=== PATIENT | male | born 1960 | race Caucasian/White ===

== ENCOUNTER 2025-01-03 01:16 | Inpatient (IN) | payer OTHER, SELFPAY ==
[2025-01-02 19:04] VITALS: BP 99/67
[2025-01-02 19:34] LABS: Hematocrit 39.1 % (39.0-52.0); Hemoglobin 13.5 g/dL (13.0-18.0); Mean Corp Hgb Conc. 34.5 g/dL (33.0-37.0); Mean Corpuscular Volume 86.9 fL (80.0-94.0); Nucleated Red Blood Cells % 0 % (-); Platelet Count 154 10^3/uL (130-400); Red Cell Dist. Width 13.3 % (11.5-14.5)
[2025-01-02 19:47] LABS: COVID-19 Antigen Negative (Negative)
[2025-01-02 19:49] LABS: ALT (SGPT) 19 U/L (0-50); AST (SGOT) 25 U/L (17-59); Albumin 4.6 g/dl (3.5-5.0); Alkaline Phosphatase 65 U/L (38-126); Blood Urea Nitrogen 30 mg/dl (9-20); Calcium 9.2 mg/dl (8.4-10.2); Carbon Dioxide 27 mmol/L (22-30); Chloride 100 mmol/L (98-107); Glucose 107 mg/dl (70-99); Potassium 4.8 mmol/L (3.5-5.1); Sodium 134 mmol/L (135-145); Total Protein 7.5 g/dl (6.3-8.2); eGFR 41.51
[2025-01-02 19:55] LABS: Urine Character Clear (Clear)
[2025-01-02 20:12] LABS: Urine White Cell 30-40 /HPF (0-5)
[2025-01-02 22:24] VITALS: BP 142/80
--- NOTE | 2025-01-02 22:37 | ED.GENMED ---
History of Present Illness
General
Chief Complaint: Fever
Source: patient
Time Seen by Provider: 01/02/25 22:18
History of Present Illness
History of Present Illness:
64-year-old male presents to the emergency room complaining of fever, chills, dysuria, frequency and urgency. Patient began having the symptoms today. Patient is approximately 6 weeks status post left nephrectomy for donation. Patient had a
relatively uncomplicated recovery from nephrectomy. He did have some urinary retention which was monitored closely with bladder scans though he never required any catheterizations. His creatinine most recently was 1.69. Surgery was performed at
[place]. Patient has no flank pain. His incisions have healed nicely. He is not having any abdominal pain or chest pain. No shortness of breath.
Phy Exam
Physical Exam
Physical Exam:
General: Awake, Alert, Oriented X3. No acute distress.
Vitals: unremarkable
Head: Atraumatic
Eyes: Pupils equal, EOMI
Throat: Airway intact, no exudates mildly dry mucosa
Neck: Trachea midline
Lungs: Clear and equal b/l
Heart: Regular rate, no murmurs
Abd: Soft, Nontender, No pulsatile mass
Back: No CVA tenderness to percussion
Neuro: Nonfocal
Skin: Warm, dry, no rash, patient capillary refill
Extremities: pulses equal b/l, no edema
Sepsis
Sepsis Screening
Sepsis Assessment: Sepsis
Sepsis Screen
Sepsis Screen: Sepsis
Date: 01/03/25
Time: 05:21
Course
Orders/Labs/Results
Orders:
Orders
01/02/25 19:23
CBC/With Diff [Complete Blood Count/With Diff] Urgent
CMP [Comprehensive Metabolic Panel] Urgent
COVID-19 Antigen Urgent
Source: Nasal Swab
Lactic Acid Urgent
Urinalysis Reflex To Culture Urgent
Date Specimen was Collected: 01/02/25
Time Specimen was Collected: 19:21
Urine Microscopic Reflex Cult Urgent
Blood Culture Urgent
SUSU Source: Blood/Venous
Specimen Description:
Urine Culture Urgent
SUSU Source: U
Specimen Description:
Date Specimen was Collected: 01/02/25
Time Specimen was Collected: 19:21
01/02/25 22:33
0.9% Sodium Chloride 1000 ml [Nss] 1,000 ml IV BOLUS
Acetaminophen [Tylenol] 1,000 mg PO NOW STA
01/02/25 22:34
CT Abd/pel Without Iv Or Oral Urgent
Comment:
Reason For Exam: elevated creatinine, recent nephrectomy, fever
01/02/25 22:35
CefTRIAXone [Rocephin] 2,000 mg IV NOW STA
01/02/25 22:40
Bladder Scan- Treatment ONCE
01/02/25 22:44
Sterile Water [Sterile Water For Injection] 20 ml .ROUTE .STK-MED
01/02/25 23:06
Blood Culture Q30M
SUSU Source: Blood/Venous
Specimen Description:
Blood Culture Q30M
SUSU Source: Blood/Venous
Specimen Description:
01/03/25 00:40
Admit/Transfer Patient As Directed
Co-Sign Provider:
Level of Care: Inpatient admission
Assign to:: Medical/Surgical
Physician / Group: [facility]
Diagnosis: Complicated UTI
Reason for Hospitalization: complicated uti
Expected length of stay greater than two midnights?: Yes
ELOS- Estimated Length of Stay in days: 2
I certify the patient meets the requirements for IP care: Yes
Code Status As Directed
Resuscitation Status: Full Code
PRN Pain Medication Management As Directed
May give lesser potent ordered pain med per pt: Yes
preference::
Protocol:: Medication orders for pain may be administered in a
manner that supports deferring to patient preference
when the pt is:
- Requesting an ordered lesser potent pain medication.
Least to most potent pain medications are defined
as: acetaminophen < NSAID < tramadol < opioids
(morphine, oxycodone, hydromorphone).
- Requesting a lesser dose of the same medication IF
ORDERED.
- Requesting a less intrusive route of administration
if both routes are prescribed by the provider (PO <
IV).
01/03/25 02:54
0.9% Sodium Chloride 1000 ml [Nss] 1,000 ml IV 125 mls/hr
Acetaminophen [Tylenol] 650 mg PO Q4HPRN PRN
Bisacodyl [Dulcolax] 10 mg RECTAL [id number] PRN
Docusate W/Senna [Senokot-S] 1 tablet PO BIDPRN PRN
Ondansetron Injectable [Zofran] 4 mg IV Q6HPRN PRN
Phenazopyridine HCl [Pyridium] 100 mg PO TIDPRN PRN
Polyethylene Glycol Powder [Miralax] 17 grams PO DAILYPRN PRN
01/03/25 02:54
Activity As Directed
Activity Level: With Assistance
Bladder Scan As Directed
Follow Bladder Retention/Intermittent Cath Algorithm?: Yes
PRN if no void in __ hours: 6
Frequency: Per Retention Algorithm
If Bladder Scan Result >: 400
then:: Straight cath
Straight Cath As Directed
Frequency: Per Retention Algorithm
Additional Instructions: straight cath as needed per acute urinary retention algorithm for 24 hrs
Additional Instructions: for bladder scan greater than 400 mL
Vital Signs As Directed
Frequency: Per unit guidelines
DX Deep Vein Thrombosis Video Routine
01/03/25 Breakfast
Regular
Basic Metabolic Panel IN AM
Complete Blood Count/No Diff IN AM
Magnesium IN AM
01/03/25 08:00
Atorvastatin [Lipitor] 10 mg PO DAILY
Heparin 5,000 units SC Q8
Paroxetine [Paxil] 10 mg PO DAILY
Tamsulosin [Flomax] 0.4 mg PO DAILY
01/03/25 22:00
CefTRIAXone [Rocephin] 2,000 mg IV Q24H
Zolpidem Tartrate [Ambien] 5 mg PO HS
Abnormal Lab Results
01/02/25
19:23
WBC 16.8 H 10^3/uL
(4.8-10.8)
RBC 4.50 L 10^6/uL
(4.70-6.10)
MPV 11.1 H fL
(7.4-10.4)
Abs Immat Gran (auto) 0.1 H 10^3/uL
(0-0.05)
Absolute Neuts (auto) 14.0 H 10^3/uL
(1.4-6.5)
Absolute Monos (auto) 1.1 H 10^3/uL
(0.1-0.6)
Neutrophils % 83.7 H %
(42.2-75.2)
Lymphocytes % 8.2 L %
(20.5-51.1)
Sodium 134 L mmol/L
(135-145)
BUN 30 H mg/dl
(9-20)
Creatinine 1.8 H mg/dL
(0.7-1.3)
Glucose 107 H mg/dl
(70-99)
Ur Occult Blood Reflex 1+ A
(Negative)
Leukocyte Esterase Rfl 1+ A
(Negative)
Urine RBC 11-15 A /HPF
(0-2)
Urine WBC (Reflex) 30-40 A /HPF
(0-5)
Urine Bacteria (Reflex) Moderate A
(Negative)
Urine Albumin (Reflex) 2+ A
(Neg - Trace)
01/02/25 19:23
01/02/25 19:23
Vital Signs
Initial and Last Documented VS:
Initial Vital Signs
Temp Pulse Resp BP Pulse Ox
99.5 F 98 20 99/67 98
01/02/25 19:04 01/02/25 19:04 01/02/25 19:04 01/02/25 19:04 01/02/25 19:04
Last Documented Vital Signs
Temp Pulse Resp BP Pulse Ox
98.7 F 89 17 105/68 99
01/03/25 03:02 01/03/25 03:02 01/03/25 03:02 01/03/25 03:02 01/03/25 03:02
MDM/Problems Addressed
Differential Diagnosis Includes:
Cystitis, pyelonephritis, infected stone, postsurgical collection or infection
MDM/Problems Addressed:
Patient presents with fever, dysuria and frequency. Patient hemodynamically stable. He is febrile here. Urinalysis is consistent with urinary tract infection. Patient's creatinine is slightly bumped from his baseline of 1.6. IV fluids
administered. IV antibiotics administered. I believe patient requires hospitalization given his recent kidney donation, the fact he is quite febrile and does appear ill. Postvoid residual here is about 100. I do not believe requires bladder
decompression but this consistent residual urine in the bladder may be setting him up for infection.
*Radiology
Radiology exam reviewed: radiology read reviewed
*Pulse Oximetry
SaO2: 98
Oxygen Mode of Delivery: Room air
Patient hypoxic: no
*Critical Care Note
Total Time (30-74mins, 75-104mins- exclusive of procedures): Not Applicable
ED Attending Note
-
Portions of this chart may have been created with voice recognition software.� Occasional wrong word or��sound alike� substitutions may have occurred due to the inherent limitations of voice recognition software.
Discharge Plan
Departure
Patient Disposition: Admit
Date of Disposition: 01/03/25
Time of Disposition: 00:18
Admit to: Med/Surg
Presentation/result/management discussed w/ accepting MD/DO: Hospitalist
Condition: Fair
Discharge Problem:
Acute UTI, Sepsis
Interventions
Interventions:
*Risk Screen - Suicide Last Done: 01/03/25 02:57
*General Assessment Last Done: 01/02/25 19:04
*Neglect/Abuse Screening Last Done: 01/02/25 19:04
*ED- Fall Risk Assessment Last Done: 01/02/25 22:48
*ED COVID-19 Vaccine History Last Done: 01/03/25 02:57
*Nursing Disposition Last Done: 01/03/25 02:45
ED- Neurological Assessment Last Done: 01/02/25 22:48
ED-Skin Assessment Last Done: 01/02/25 22:48
Discharge Date and Time
Discharge Date/Time: 01/03/25 02:47
[2025-01-02] MEDS: TYLENOL 1000 MG PO (22:55)
[2025-01-02] MEDS: NSS 1000 IV (22:55)
[2025-01-02] MEDS: ROCEPHIN 2000 MG IV (22:55)
[2025-01-02 23:00] VITALS: BP 120/68
[2025-01-02 23:36] VITALS: BP 139/83
[2025-01-03] VITALS (7 sets, daily range): BP systolic 105–114; BP diastolic 62–74; BMI 25.2
--- NOTE | 2025-01-03 00:33 | HPS.HSE ---
Family Physician
-
Family Physician: Morgan Diaz
Chief Complaint
-
Urinary symptoms and fever
History of Present Illness
This is a 64-year-old with past medical history significant for hyperlipidemia who is 6 weeks status post left nephrectomy, kidney donor presented to the emergency department with fever and urinary symptoms.
Patient reported that postoperatively he had some urinary retention but did not require catheterization. His creatinine was 1.69 at time of discharge. He said today he started having urinary frequency, dysuria, urgency and chills. Was found to
have fever on arrival in the emergency department.
He had an uncomplicated recovery from right nephrectomy but did have bladder scans for urinary retention but did not require catheterization. Creatinine immediately postop was 1.84 and his creatinine was 1.69 at time of discharge a few days later.
Patient reports history of BPH and he started taking tamsulosin about 6 months ago. He still continues to have nocturia.
In the ED he had a temp of 101.1, blood pressure was 112/74 with a pulse rate of 102 and was satting 91% on room air. White count was 16.8, hemoglobin was otherwise unremarkable with normal platelet count. Electrolytes were normal. Creatinine is
1.8 with a BUN of 30 and a glucose of 107. UA is positive for leukocyte esterase WBCs and bacteria. The's noncontrast CT of the abdomen pelvis showed possible bladder wall thickening consistent with cystitis, no obstruction, status post left
nephrectomy. Negative COVID flu and, negative flu
Medical History
Past Medical History
Past Medical History: Reports Hypercholesterolemia and Other (BPH)
Past Surgical History: Reports Other (Left nephrectomy)
Social History
Tobacco: Non-smoker
Alcohol: None
Drug: None
Family History
Family History: Not pertinent
Allergies / Home Medications
Allergies reflects when Allergies were last updated in [employer].
Home Medications with original date entered in [employer]
Allergy/Medication List:
Allergies
Allergy/AdvReac Type Severity Reaction Status Date / Time
Penicillins Allergy Unknown Verified 01/02/25 19:03
Home Medications
paroxetine HCl 10 mg tablet (Paxil) 10 mg PO DAILY 01/03/25
simvastatin 10 mg tablet 10 mg PO DAILY 01/03/25
tamsulosin 0.4 mg capsule 0.4 mg PO DAILY 01/03/25
zolpidem 5 mg tablet (Ambien) 5 mg PO HS 01/03/25
Review of Systems
-
Constitutional: Reports Fever
EENT: Reports No Symptoms
Respiratory: Reports No Symptoms
Cardiac: Reports No Symptoms
Abdomen/GI: Reports No Symptoms
: Reports Dysuria, Frequency and Urgency
Musculoskeletal: Reports No Symptoms
Skin: Reports No Symptoms
Neurological: Reports No Symptoms
Endocrine: Reports No Symptoms
Hematologic/Lymphatic: Reports No Symptoms
Psych: Reports No Symptoms
Physical Exam
Vital Signs
Vital Signs
Temp Pulse Resp BP Pulse Ox
101.1 F H 102 25 112/74 97
01/03/25 00:16 01/03/25 00:00 01/03/25 00:00 01/03/25 00:00 01/03/25 00:00
Physical Exam
General: Well Developed, Well Nourished and No Apparent Distress
HEENT: NormoCephalic, Moist mucous membranes and Atraumatic
Respiratory: Clear
Cardiac: S1/S2 and Regular Rhythm; No Murmur or Rub
GI: Soft, Non Tender, Non Distended and Normal Bowel Sounds; No Organomegaly
Rectal: Deferred by Provider
Musculoskeletal: No Clubbing, No Cyanosis and No Edema
Skin: No Rash
Neuro: Nonfocal/grossly intact
Laboratory Results
-
01/02/25 19:23
01/02/25 19:23
Laboratory Results
Lactic Acid 0.7 mmol/L (0.7-2.0) 01/02/25 19:23
Total Bilirubin 0.6 mg/dl (0.2-1.3) 01/02/25 19:23
AST 25 U/L (17-59) 01/02/25 19:23
ALT 19 U/L (0-50) 01/02/25 19:23
Alkaline Phosphatase 65 U/L (38-126) 01/02/25 19:23
Data Reviewed
-
CT Scan: Report Reviewed by me
Lab Data: Labs Reviewed by me
Old Records: Reviewed
Impression/Plan
-
IMPRESSION:
64-year-old presented to the emergency department with pyelonephritis 6 weeks status post left donor nephrectomy. Appears to have RUSTAM since the procedure with a creatinine of 1.6 at the time of discharge and now 1.8. No urinary obstruction but
appears to have some symptoms of urinary retention at time of discharge from cephalization. Today there is no evidence of urinary retention on imaging. He is on tamsulosin. He has positive UA fever and leukocytosis consistent with a urinary tract
infection for
PLAN:
Complicated UTI -unclear etiology of his urinary tract infection but likely related to moderate retention. No evidence of prostatitis. Has a fever and possibly pyelonephritis.
- Admit to [facility]
- Blood cultures sent
-Urine cultures
- Agree with IV ceftriaxone for now
- IV fluids overnight
- Bladder scan to monitor for retention
- Continue tamsulosin
- pyridium prn
Renal Insufficiency - Pre-surgical Cr 1.0. Preop as high as 1.3, then 1.84 post operatively at the peak. 1.69 at discharge. The transient is in line with loss of total kidney function with surgery. Slightly worsened since discharge with Cr 1.8.
BPH symptoms with possible retention but no current hydro or bladder distention
- iv fluids
- bladder scan protocol
- avoid nephrotoxins, nsaids
- if creatinine rising further, consult nephrology
DVT prophylaxis�heparin subcu
CODE STATUS�full code
[2025-01-03] MEDS: NSS 1000 IV ×3 (03:34→17:46)
--- NOTE | 2025-01-03 03:53 | PTCARENOTE ---
Pt arrived around 02:45 via wheelchair and ambulated to bed. Pt oriented to unit, call shore within reach, side rails up, bed set at lowest position. Will continue plan of care.
[2025-01-03] MEDS: FLOMAX 0.4 MG PO ×2 (05:50→14:18)
[2025-01-03] MEDS: TYLENOL 650 MG PO ×3 (08:26→21:04)
[2025-01-03] MEDS: HEPARIN 5000 UNITS SC (08:27)
[2025-01-03] MEDS: LIPITOR 10 MG PO (08:27)
[2025-01-03] MEDS: PAXIL 10 MG PO (08:27)
[2025-01-03 08:34] LABS: Blood Urea Nitrogen 25 mg/dl (9-20); Calcium 8.0 mg/dl (8.4-10.2); Carbon Dioxide 25 mmol/L (22-30); Chloride 105 mmol/L (98-107); Estimated Creatinine Clearance 46 ml/min; Glucose 104 mg/dl (70-99); Magnesium 2.0 mg/dl (1.6-2.3); Potassium 4.4 mmol/L (3.5-5.1); Sodium 134 mmol/L (135-145); eGFR 41.51
[2025-01-03 08:55] LABS: Hematocrit 33.5 % (39.0-52.0); Hemoglobin 11.5 g/dL (13.0-18.0); Mean Corp Hgb Conc. 34.3 g/dL (33.0-37.0); Mean Corpuscular Volume 86.6 fL (80.0-94.0); Red Cell Dist. Width 13.3 % (11.5-14.5)
[2025-01-03 09:09] LABS: Platelet Count 130 10^3/uL (130-400)
--- NOTE | 2025-01-03 10:10 | W.PN.HOSP.TC ---
Today's Communication/Plan
-
cont ABX
cont IVF
consult renal
Assessment / Plan
Assessment / Plan
pt is a 64 year old male
Complicated UTI -unclear etiology of his urinary tract infection but likely related to moderate retention--No evidence of prostatitis--cultures pending--cont rocephin, cont flomax--cont IVF--bladder scan protocol
RUSTAM - Pre-surgical Cr 1.0. Preop as high as 1.3, then 1.84 post operatively at the peak--1.69 at discharge--Slightly worsened since discharge with Cr 1.8. BPH symptoms with possible retention but no current hydro or bladder distention --consult
renal--cont IVF--cont tamsulosin
DVT prophylaxis�heparin subcu
CODE STATUS�full code
Anticipated Discharge: Within 24 hours
Subjective/Interval History
-
Date of Service: January 03, 2025
pt still c/o some burning with urination
Objective Data
-
Labs:
Laboratory Results
01/03/25
07:00
WBC 20.9 H
Hgb 11.5 L
Hct 33.5 L
Plt Count 130
Sodium 134 L
Potassium 4.4
Chloride 105
Carbon Dioxide 25
BUN 25 H
Creatinine 1.8 H
Glucose 104 H
Calcium 8.0 L
Vital Signs:
max temp for 24 hours
01/03/25
00:16
Temp 101.1 F H
Vital Signs
Temp Pulse Resp BP Pulse Ox
100.9 F H 88 16 114/67 97
01/03/25 07:47 01/03/25 07:47 01/03/25 07:47 01/03/25 07:47 01/03/25 07:47
I&O
01/02/25 01/03/25 01/04/25
06:59 06:59 06:59
Output Total 400 / 400
Balance -400 / -400
Review of Systems
-
All other systems: Reviewed and negative
Genitourinary: Reports Dysuria
Physical Exam
-
General: Well Developed, Well Nourished and No Apparent Distress
HEENT: Normocephalic and Atraumatic
Respiratory: Clear to Auscultation; Negative Wheezes or Rhonchi
Cardiac: Regular Rhythm and S1/S2; Negative Murmur
GI: Soft, Nontender, Nondistended and Normal Bowel Sounds
Musculoskeletal: No Clubbing, No Cyanosis and No Edema
Skin: Warm
Neuro: Awake
--- NOTE | 2025-01-03 12:40 | W.CON.NEPH ---
Addendum entered and electronically signed by Lito Walker MD 01/03/25 15:03:
I agree with the resident's note with the addendum
64-year-old gentleman in very good health with known BPH on Flomax therapy for years though he still has nocturia 4 times per night. He has hyperlipidemia controlled with statin therapy. He underwent a living left kidney laparoscopic donation 6
weeks ago for a friend of the family. His hospital course was unremarkable. His creatinine prior to nephrectomy was 1.03 and postprocedure was 1.69. He had subsequent follow-up blood work which had shown a creatinine of 1.7 and 1.84 as well. He
was in fairly good health until a few days ago when he began developing urinary frequency as well as dysuria and urgency. Because of this he went to urgent care who referred him to the emergency room. He was admitted with a urinary tract
infection. Urine cultures thus far are negative to date however. He has not required straight catheterization on postvoid residual in the hospital. His creatinine was noted to be 1.8 and we are asked to assist with management of his renal
function.
Patient is awake alert oriented and in no distress. Mood and affect were pleasant, insight and judgment were good. Pupils are equal round and reactive to light, extraocular movements are intact, sclera were anicteric. Hearing was normal, ears and
nose are intact. Oropharynx was clear. Neck was supple with trachea midline and no thyromegaly. Heart was regular rate and rhythm without rubs. Lower extremities without edema. Lungs were clear to auscultation bilaterally and with normal
excursion. Abdomen was soft, nontender, with normal active bowel sounds, and no hepatosplenomegaly. Skin was without rash and with normal turgor.
Prior laboratory values reviewed
Abdominal CT on 01/02/2025 shows no acute disease
Assessment
RUSTAM (solitary kidney status post nephrectomy)
BPH
UTI
Plan
Continue IV Fluids
Increase Flomax dosage given concern for retention
Daily BMP
Antibiotics will continue for UTI
Follow bladder scan
Current creatinine is appropriate given his recent nephrectomy.
Original Note:
Consultation
-
Date/Time Consultation Requested: 01/03/2025 10:19
Date/Time Consultation Performed: 01/03/2025 12:43
Requesting Provider: Janet Mcgee MD
Performing Provider: Lito Walker MD
Reason for Consultation: RUSTAM
Medical History
-
Chief Complaint: FEVER
History of Present Illness:
This is a 64-year-old male with past medical history of hyperlipidemia, BPH recent kidney donor s/p left nephrectomy 6 weeks ago at [facility] who presented to ED complaining of fever and urinary symptoms. Patient recently donated his left kidney. He
states he had an uncomplicated recovery from nephrectomy with incisions healed appropriately. Postprocedure, he did have some urinary retention but did not require catheterizations. In addition, he reports that today started having urinary
frequency, dysuria, urgency and chills. Creatinine postprocedure was 1.69 which patient states has been trending up over the past few weeks. Prior to procedure, his baseline creatinine was 1.03. Laboratory today with creatinine 1.8, eGFR 41.51
given his worsening creatinine postprocedure, we are asked to evaluate patient from a nephrology standpoint.
Past Medical History
Past Medical History: Reports Hypercholesterolemia and Other (BPH)
Past Surgical History: Reports Other (Left nephrectomy)
Social History
Tobacco: Non-Smoker
Alcohol: None
Drug: None
Allergies / Home Medications
Allergy/AdvReac Type Severity Reaction Status Date / Time
Penicillins Allergy Unknown Verified 01/02/25 19:03
�Medication �Instructions �Recorded �Confirmed �Type
paroxetine HCl 10 mg tablet (Paxil) 10 mg PO DAILY 01/03/25 01/03/25 History
simvastatin 10 mg tablet 10 mg PO DAILY 01/03/25 01/03/25 History
tamsulosin 0.4 mg capsule 0.4 mg PO DAILY 01/03/25 01/03/25 History
zolpidem 5 mg tablet (Ambien) 5 mg PO HS 01/03/25 01/03/25 History
Review of Systems
-
All other systems: Negative unless noted (All review of systems obtained and negative except as documented in HPI)
Physical Exam
Vital Signs
Vital Signs
Temp Pulse Resp BP Pulse Ox
100.1 F 88 16 114/67 97
01/03/25 10:54 01/03/25 07:47 01/03/25 07:47 01/03/25 07:47 01/03/25 07:47
Lab Results
WBC 20.9 10^3/uL (4.8-10.8) H 01/03/25 07:00
RBC 3.87 10^6/uL (4.70-6.10) L 01/03/25 07:00
Hgb 11.5 g/dL (13.0-18.0) L 01/03/25 07:00
Hct 33.5 % (39.0-52.0) L 01/03/25 07:00
Plt Count 130 10^3/uL (130-400) 01/03/25 07:00
Sodium 134 mmol/L (135-145) L 01/03/25 07:00
Potassium 4.4 mmol/L (3.5-5.1) 01/03/25 07:00
Chloride 105 mmol/L (98-107) 01/03/25 07:00
Carbon Dioxide 25 mmol/L (22-30) 01/03/25 07:00
BUN 25 mg/dl (9-20) H 01/03/25 07:00
Creatinine 1.8 mg/dL (0.7-1.3) H 01/03/25 07:00
eGFR 41.51 01/03/25 07:00
Glucose 104 mg/dl (70-99) H 01/03/25 07:00
Calcium 8.0 mg/dl (8.4-10.2) L 01/03/25 07:00
Albumin 4.6 g/dl (3.5-5.0) 01/02/25 19:23
Physical Exam
General: Awake, Alert, Oriented and AOx3
HEENT: PERRL and Anicteric
Respiratory: Clear
Cardiac: S1/S2 and Regular Rate/Rhythm
Abdomen: Soft, Nontender, Nondistended and Normal Bowel Sounds
Musculoskeletal: No Edema
Assessment/Plan
-
Assessment
RUSTAM (solitary kidney status post nephrectomy) likely secondary to ongoing UTI
BPH
UTI
Plan
Continue IV Fluids
Increase Flomax dosage given concern for retention
Daily BMP
Monitor Urinary Output
Bladder scan
Follow cultures
[2025-01-03] MEDS: HEPARIN SC (15:45)
[2025-01-03] MEDS: ROCEPHIN 2000 MG IV (21:00)
[2025-01-03] MEDS: STERILE WATER FOR INJECTION 20 ML IV (21:04)
[2025-01-03] MEDS: AMBIEN 5 MG PO (21:05)
[2025-01-04] MEDS: HEPARIN SC ×3 (00:14→15:04)
[2025-01-04] MEDS: NSS 1000 IV ×3 (02:15→18:41)
[2025-01-04 07:00] VITALS: BP 96/61
[2025-01-04 08:02] LABS: Hematocrit 32.5 % (39.0-52.0); Hemoglobin 10.9 g/dL (13.0-18.0); Mean Corp Hgb Conc. 33.5 g/dL (33.0-37.0); Mean Corpuscular Volume 87.1 fL (80.0-94.0); Platelet Count 139 10^3/uL (130-400); Red Cell Dist. Width 13.6 % (11.5-14.5)
[2025-01-04] MEDS: LIPITOR 10 MG PO (08:12)
[2025-01-04] MEDS: PAXIL 10 MG PO (08:12)
[2025-01-04] MEDS: FLOMAX 0.8 MG PO (08:13)
[2025-01-04 08:20] LABS: Blood Urea Nitrogen 23 mg/dl (9-20); Calcium 8.1 mg/dl (8.4-10.2); Carbon Dioxide 24 mmol/L (22-30); Chloride 107 mmol/L (98-107); Estimated Creatinine Clearance 46 ml/min; Glucose 108 mg/dl (70-99); Magnesium 2.1 mg/dl (1.6-2.3); Potassium 4.3 mmol/L (3.5-5.1); Sodium 136 mmol/L (135-145); eGFR 41.51
--- NOTE | 2025-01-04 10:37 | W.PN.NEPH.PH ---
Today's Communication / Plan
-
IVF
Assessment/Plan
-
Assessment
RUSTAM (solitary kidney status post nephrectomy) likely secondary to ongoing UTI
BPH
UTI
Plan
Continue IV Fluids
Increased Flomax dosage
Daily BMP
check PVR today
Follow cultures, still negative to date
ok to come off IVF for shower if allowed
-
-
Date of Service: January 04, 2025
CC / HPI / ROS
-
Chief Complaint:
solitary kidney
History of Present Illness:
Cr stable 1.8
on IV abx for UTI, fewer symptoms
BP stable
Review of Systems:
no CP/SOB
Labs
-
Labs:
WBC 19.9 10^3/uL (4.8-10.8) H 01/04/25 07:32
RBC 3.73 10^6/uL (4.70-6.10) L 01/04/25 07:32
Hgb 10.9 g/dL (13.0-18.0) L 01/04/25 07:32
Hct 32.5 % (39.0-52.0) L 01/04/25 07:32
Plt Count 139 10^3/uL (130-400) 01/04/25 07:32
Sodium 136 mmol/L (135-145) 01/04/25 07:32
Potassium 4.3 mmol/L (3.5-5.1) 01/04/25 07:32
Chloride 107 mmol/L (98-107) 01/04/25 07:32
Carbon Dioxide 24 mmol/L (22-30) 01/04/25 07:32
BUN 23 mg/dl (9-20) H 01/04/25 07:32
Creatinine 1.8 mg/dL (0.7-1.3) H 01/04/25 07:32
eGFR 41.51 01/04/25 07:32
Glucose 108 mg/dl (70-99) H 01/04/25 07:32
Calcium 8.1 mg/dl (8.4-10.2) L 01/04/25 07:32
Albumin 4.6 g/dl (3.5-5.0) 01/02/25 19:23
Physical Exam
-
Vital Signs:
Vital Signs
Temp Pulse Resp BP Pulse Ox
99 F 74 16 96/61 96
01/04/25 07:00 01/04/25 07:00 01/04/25 07:00 01/04/25 07:00 01/04/25 07:00
Cardiovascular:: Regular rate and rhythm
Respiratory:: Bilateral: CTA
Lung Excursion:: Normal
Abdomen:: Nontender and Soft
Bowel Sounds:: Normal
Extremity Edema:: None: Bilateral:
[2025-01-04] MEDS: TYLENOL 650 MG PO ×2 (12:22→17:22)
--- NOTE | 2025-01-04 12:37 | W.PN.HOSP.TC ---
Today's Communication/Plan
-
change rocephin to cefepime
consult ID
recheck blood culture
follow counts
Assessment / Plan
Assessment / Plan
pt is a 64 year old male
Complicated UTI -unclear etiology of his urinary tract infection but likely related to moderate retention--? prostatitis, cultures negative but pt still with burning with urination and elevated WBC, shaking chills--change IV rocephin to
cefepime--consult ID, cont flomax--cont IVF--bladder scan protocol
RUSTAM - Pre-surgical Cr 1.0. Preop as high as 1.3, then 1.84 post operatively at the peak--1.69 at discharge--Slightly worsened since discharge with Cr 1.8... may be elevated for a few months yet.... BPH symptoms with possible retention but no
current hydro or bladder distention --apprec renal--cont IVF--cont tamsulosin, increased by renal
urinary retention--cont flomax and should follow up with urology as outpt
recent kidney donor
DVT prophylaxis�heparin subcu
CODE STATUS�full code
Anticipated Discharge: 24 - 48 hours
Subjective/Interval History
-
Date of Service: January 04, 2025
pt feels 'lousy'--shaking chills
Objective Data
-
Labs:
Laboratory Results
01/04/25
07:32
WBC 19.9 H
Hgb 10.9 L
Hct 32.5 L
Plt Count 139
Sodium 136
Potassium 4.3
Chloride 107
Carbon Dioxide 24
BUN 23 H
Creatinine 1.8 H
Glucose 108 H
Calcium 8.1 L
Vital Signs:
max temp for 24 hours
01/03/25
15:52
Temp 100.6 F H
Vital Signs
Temp Pulse Resp BP Pulse Ox
100.7 F H 74 16 96/61 96
01/04/25 12:21 01/04/25 07:00 01/04/25 07:00 01/04/25 07:00 01/04/25 07:00
I&O
01/03/25 01/04/25 01/05/25
06:59 06:59 06:59
Output Total 400 / 400 825 / 825
Balance -400 / -400 -825 / -825
Review of Systems
-
All other systems: Reviewed and negative
Constitutional: Reports Fever and Chills
Genitourinary: Reports Dysuria
Physical Exam
-
General: Well Developed, Well Nourished and Other (ill appearing)
HEENT: Normocephalic and Atraumatic
Respiratory: Clear to Auscultation; Negative Wheezes or Rhonchi
Cardiac: Regular Rhythm and S1/S2; Negative Murmur
GI: Soft, Nontender, Nondistended and Normal Bowel Sounds
Musculoskeletal: No Clubbing, No Cyanosis and No Edema
Skin: Warm
Neuro: Awake
Psych: Calm
[2025-01-04] MEDS: MAXIPIME 1000 MG IV (13:08)
[2025-01-04] MEDS: STERILE WATER FOR INJECTION 10 ML IV (13:08)
--- NOTE | 2025-01-04 14:13 | CM ---
Patient seen at bedside
IA completed
Lives with and son in multi story home, 3 [address], flight of stairs to bed/bath
PLOF: independent, drives, works
DME: Crutches
Denies VN/Rehab
PCP: Dr. Stuart, [facility]
Pharmacy: [address]
PLAN: Home, no needs when stable
[2025-01-04 15:00] VITALS: BP 105/61
[2025-01-04] MEDS: AMBIEN 5 MG PO (21:22)
[2025-01-04 23:41] VITALS: BP 98/60
[2025-01-05] MEDS: HEPARIN SC ×3 (00:05→15:16)
[2025-01-05] MEDS: STERILE WATER FOR INJECTION 10 ML IV ×2 (02:10→14:11)
[2025-01-05] MEDS: MAXIPIME 1000 MG IV ×2 (02:11→14:11)
[2025-01-05] MEDS: NSS 1000 IV (02:17)
[2025-01-05 07:47] VITALS: BP 119/63
[2025-01-05] MEDS: FLOMAX 0.8 MG PO (07:57)
[2025-01-05] MEDS: LIPITOR 10 MG PO (07:57)
[2025-01-05] MEDS: PAXIL 10 MG PO (07:57)
[2025-01-05] MEDS: MIRALAX 17 GRAMS PO (09:02)
--- NOTE | 2025-01-05 09:09 | CON.ID ---
Addendum entered and electronically signed by Pam Perez MD 01/05/25 17:00:
I personally performed a history and physical exam of the patient and discussed management with the resident. I reviewed the resident's note and agree with most of the documented findings and plan of care HPI/CC.
# Fever
# Leukocytosis
# Urinary sx: dysuria, urgency, frequency - suspecting prostatitis
# Recent robotic left nephrectomy for donation at [facility] 11/19/24
# RUSTAM
# BPH
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
-UA 1+LE, 30-40 wbc.
-Ucx NO GROWTH (before abx)
- CT a/p without contrast: +BPH, otherwise unremarkable
- No response to ceftriaxone -> changed to cefepime on 01/04.
Leukocytosis trending down.
Fever to 101 today at 15:00
Urine sxs persist.
- Continue cefepime for now (renally adjusted)
If no response, consider US of prostate and scrotum to evaluate for abscess and also check urine for GC/CT NAAT.
- Trend temps, WBC, and renal function.
Case discussed with Dr. Heath.
Original Note:
Consultation
-
Date/Time Consultation Requested: 01/04/25 12:36
Date/Time Consultation Performed: 01/05/25 10:00
Requesting Provider: Dr. Mcgee
Performing Provider: Yan Silver MD ; Pam Perez MD
Reason for Consultation: Pssible complicated UTI
Chief Complaint / Past History
Chief Complaint
Fever and dysuria
History of Present Illness
This is a 64-year-old male with known past medical history of hyperlipidemia, BPH, recent kidney donor s/p left nephrectomy 6 weeks ago at [facility] presented in the emergency department on 01/02/2025 with complaints of fever and urinary symptoms including
dysuria and frequency. He had an uncomplicated recovery from the nephrectomy with incisions healed appropriately and he was doing well until recently when he developed fevers and dysuria. He reports that postprocedure he did have some urinary
retention but did not require any catheterization. His creatinine postprocedure was 1.69, prior to procedure was 1.03. On arrival the creatinine was 1.8, eGFR was 41.51.
Nephrology was consulted and he was admitted for further treatment.
Initial labs showed that white count of 16.8 which has been trending down.
Initial serum creatinine was 1.8 with slight improvement today to 1.7
He also had mild hyponatremia which resolved.
COVID was negative
Urinalysis showed 1+ occult blood, leukocyte esterase positive, urine WBCs, urine bacteria.
He was started on ceftriaxone however given his persistent chills and dysuria I was changed to cefepime yesterday.
Blood cultures were also obtained which remained negative today. Urine culture negative.
Past History
Past Medical History: Hypercholesterolemia and Other (BPH)
Past Surgical History: Other (Left nephrectomy(donor))
Allergy History:
Penicillins Allergy (Verified 01/02/25 19:03)
Unknown
Medications Reviewed: Yes
Current Antibiotics:
cefepime
Social History
Tobacco: Non-Smoker
Alcohol: None
Drug: None
Living: With Family
Employment: Employed
Family History
Family History: Not Pertinent
Review of Systems
Review of Systems
General: Fever
Cardiovascular: Negative Chest Pain
Respiratory: Negative Dyspnea or Cough
Genital / Urological: Dysuria; Negative Hematuria or Flank Pain
Vital Signs
Temp Pulse Resp BP Pulse Ox
98 F 70 20 119/63 97
01/05/25 07:47 01/05/25 07:47 01/05/25 08:03 01/05/25 07:47 01/05/25 07:47
Physical Exam
Physical Exam
Constitutional: No Acute Distress and Comfortable
Cardiovascular: Regular Rate and S1/S2
Pulmonary: Clear, Symmetric and Non Labored
Gastrointestinal: Soft, Non Tender, Non Distended and Other (well healed surgical scars)
Skin: Warm and Dry
Neurological: Awake, Alert and Oriented
Psychological: Calm
Lab / Diagnostic Study Results
Abs Immat Gran (auto) 0.1 10^3/uL (0-0.05) H 01/02/25 19:23
Absolute Neuts (auto) 14.0 10^3/uL (1.4-6.5) H 01/02/25 19:23
Absolute Lymphs (auto) 1.4 10^3/uL (1.2-3.4) 01/02/25 19:23
Absolute Monos (auto) 1.1 10^3/uL (0.1-0.6) H 01/02/25 19:23
Absolute Basos (auto) 0.1 10^3/uL (0-0.2) 01/02/25 19:23
Immature Gran % 0.4 % (0-0.5) 01/02/25 19:23
Neutrophils % 83.7 % (42.2-75.2) H 01/02/25 19:23
Lymphocytes % 8.2 % (20.5-51.1) L 01/02/25 19:23
Monocytes % 6.3 % (1.7-9.3) 01/02/25 19:23
Eosinophils % 1.1 % (0-6) 01/02/25 19:23
Basophils % 0.3 % (0-2) 01/02/25 19:23
Lactic Acid 0.7 mmol/L (0.7-2.0) 01/02/25 19:23
Ur Squamous Epith Cells 3-5 /LPF (Few) 01/02/25 19:23
Microbiology Results
Micro:
01/02/25 23:06 Blood Culture - Preliminary
Blood/Venous No Growth in 48 hours- Final report to follow
01/02/25 23:06 Blood Culture - Preliminary
Blood/Venous No Growth in 48 hours- Final report to follow
01/02/25 19:23 Blood Culture - Preliminary
Blood/Venous No Growth in 48 hours- Final report to follow
01/04/25 18:21 Blood Culture - Pending
Blood/Venous
01/02/25 19:23 Urine Culture - Final
Urine NO GROWTH
CT Abd/pel Without Iv Or Oral 01/02/25:
Status post left nephrectomy. There is no evidence of a focal collection to suggest an abscess.
Normal appearance of the unenhanced right kidney. No focal abnormality of the urinary bladder.
Enlargement of the prostate gland.
Normal appearance of the appendix. No evidence for bowel obstruction or free intraperitoneal air. There is no CT evidence to suggest diverticulitis.
Assessment / Plan
# UTI with ongoing dysuria; prostatis is possible
# BPH ; flomax dose was doubled
# Renal insufficiency : per nephro creatinine is appropriate given his recent nephrectomy.
# Leukocytosis: resolving
# Recent Kidney Donor
- BCx and UCx neg; repeat bcx from yesterday pending
- afebrile since switched to cefepime on pm
- continue cefepime for now
--- NOTE | 2025-01-05 09:14 | W.PN.HOSP.TC ---
Today's Communication/Plan
-
Consult urology
c/w IV cefepime
Can stop IVF
Assessment / Plan
Assessment / Plan
Physical Exam
-
General: Well Developed, Well Nourished and Other (ill appearing)
HEENT: Normocephalic and Atraumatic
Respiratory: Clear to Auscultation; Negative Wheezes or Rhonchi
Cardiac: Regular Rhythm and S1/S2; Negative Murmur
GI: Soft, Nontender, Nondistended and Normal Bowel Sounds
Musculoskeletal: No Clubbing, No Cyanosis and No Edema
Skin: Warm
Neuro: Awake
Psych: Calm
A/p:
pt is a 64 year old male
# He presented with fever, dysuria and leukocytosis
Localized infection, not sepsis
Possible Complicated UTI -
Rule out prostatitis, cultures negative but pt still with dysuria/ burning with urination and elevated WBC, shaking chills--change IV rocephin to cefepime--consulted ID, cont Flomax--cont IVF--bladder scan protocol,
Consult urology
Appreciate ID & urology help
RSUTAM - Pre-surgical Cr 1.0. Preop as high as 1.3, then 1.84 post operatively at the peak--1.69 at discharge--Slightly worsened since discharge with Cr 1.8... may be elevated for a few months yet.... BPH symptoms with possible retention but no
current hydro or bladder distention --
c/w Flomax, cans top IVF ( he is having frequent urination)
Appreciate nephrology help
# Acute urinary retention--cont flomax
# Dilutional anemia
#Recent left nephrectomy as a kidney donor
DVT prophylaxis�heparin subcu
CODE STATUS�full code
Total time spent to see the patient, examine the patient, review data and lab results, discuss treatment plan with patient, nursing staff around 55 minutes
Anticipated Discharge: 24 - 48 hours
Subjective/Interval History
-
Date of Service: January 05, 2025
Reports Dysuria ( not improving)
No chest pain
No sob
No fevers
Objective Data
-
Labs:
Laboratory Results
01/05/25
08:19
WBC Pending
Hgb Pending
Hct Pending
Plt Count Pending
Sodium Pending
Potassium Pending
Chloride Pending
Carbon Dioxide Pending
BUN Pending
Creatinine Pending
Glucose Pending
Calcium Pending
Vital Signs:
Vital Signs
Temp Pulse Resp BP Pulse Ox
98 F 70 20 119/63 97
01/05/25 07:47 01/05/25 07:47 01/05/25 08:03 01/05/25 07:47 01/05/25 07:47
I&O
01/04/25 01/05/25 01/06/25
06:59 06:59 06:59
Intake Total 480 / 480
Output Total 825 / 825
Balance -825 / -825 480 / 480
[2025-01-05 09:26] LABS: Hematocrit 28.7 % (39.0-52.0); Hemoglobin 9.8 g/dL (13.0-18.0); Mean Corp Hgb Conc. 34.1 g/dL (33.0-37.0); Mean Corpuscular Volume 88.3 fL (80.0-94.0); Platelet Count 131 10^3/uL (130-400); Red Cell Dist. Width 13.7 % (11.5-14.5)
[2025-01-05 10:01] LABS: Blood Urea Nitrogen 18 mg/dl (9-20); Calcium 7.6 mg/dl (8.4-10.2); Carbon Dioxide 23 mmol/L (22-30); Chloride 107 mmol/L (98-107); Estimated Creatinine Clearance 48 ml/min; Glucose 121 mg/dl (70-99); Magnesium 2.1 mg/dl (1.6-2.3); Potassium 4.3 mmol/L (3.5-5.1); Sodium 135 mmol/L (135-145); eGFR 44.46
--- NOTE | 2025-01-05 12:27 | W.PN.NEPH.PH ---
Today's Communication / Plan
-
Discontinue IV fluids
Assessment/Plan
-
Assessment
RUSTAM (solitary kidney status post nephrectomy) likely secondary to ongoing UTI
BPH
UTI
Plan
Increased Flomax dosage
Daily BMP
check PVR = negative
Follow cultures, still negative to date
Fluids discontinued
Creatinine remains stable 1.7
-
-
Date of Service: January 05, 2025
CC / HPI / ROS
-
Chief Complaint:
solitary kidney
History of Present Illness:
Cr stable 1.8
on IV abx for UTI, fewer symptoms
BP stable
Review of Systems:
no CP/SOB
Labs
-
Labs:
WBC 12.8 10^3/uL (4.8-10.8) H 01/05/25 08:19
RBC 3.25 10^6/uL (4.70-6.10) L 01/05/25 08:19
Hgb 9.8 g/dL (13.0-18.0) L 01/05/25 08:19
Hct 28.7 % (39.0-52.0) L 01/05/25 08:19
Plt Count 131 10^3/uL (130-400) 01/05/25 08:19
Sodium 135 mmol/L (135-145) 01/05/25 08:19
Potassium 4.3 mmol/L (3.5-5.1) 01/05/25 08:19
Chloride 107 mmol/L (98-107) 01/05/25 08:19
Carbon Dioxide 23 mmol/L (22-30) 01/05/25 08:19
BUN 18 mg/dl (9-20) 01/05/25 08:19
Creatinine 1.7 mg/dL (0.7-1.3) H 01/05/25 08:19
eGFR 44.46 01/05/25 08:19
Glucose 121 mg/dl (70-99) H 01/05/25 08:19
Calcium 7.6 mg/dl (8.4-10.2) L 01/05/25 08:19
Albumin 4.6 g/dl (3.5-5.0) 01/02/25 19:23
Physical Exam
-
Vital Signs:
Vital Signs
Temp Pulse Resp BP Pulse Ox
98 F 70 20 119/63 97
01/05/25 07:47 01/05/25 07:47 01/05/25 08:03 01/05/25 07:47 01/05/25 07:47
Cardiovascular:: Regular rate and rhythm
Respiratory:: Bilateral: CTA
Lung Excursion:: Normal
Abdomen:: Nontender and Soft
Bowel Sounds:: Normal
Extremity Edema:: None: Bilateral:
[2025-01-05 15:00] VITALS: BP 119/68
[2025-01-05] MEDS: TYLENOL 650 MG PO (16:11)
--- NOTE | 2025-01-05 16:12 | W.PN.URO.CBU ---
Today's Communication / Plan
-
cotinue present care
Assessment / Plan
-
by history pt with complex uti most likely prostatitis due to richards and steroids ct scan also possible cystitis for now agree with flomax 0.4 as bladder emptyimg and wbc and fever trending down would treat as prostatitis but if
relapses benny do abdoulaye an d may need mri but d]for now sxs resolving cannot have advil secondary to creatinine so pyridium for burning which generally has little effect richards can be useful but should nt instrument infected prostae will folow
Diagnosis
-
Date of Service: January 05, 2025
-
Patient Diagnosis:s/p kidney donation 7 weeks ago ghad richards 2 days and kalie flynn uretrectomy pos t op had steroids now 7 weeks akira severe duysuria frequncy no coloc no dp-side pain wbc was welented 16 then 20 k now declining blood cxs and urine
cxs neg but u/aq p[os ntrites pt feeling better and temp teending sdown
Post Op Day:
Subjective
-
feeling better still dysuria less frequency
Objective
-
Vital Signs
Temp Pulse Resp BP Pulse Ox
101.0 F H 72 18 119/68 98
01/05/25 15:00 01/05/25 15:00 01/05/25 15:00 01/05/25 15:00 01/05/25 15:00
Intake and Output
01/04/25 01/05/25 01/06/25
06:59 06:59 06:59
Intake Total 480 / 480
Output Total 825 / 825
Balance -825 / -825 480 / 480
Intake:
Oral fluids 480 / 480
Output:
Urine, Voided 825 / 825
Other:
Number of approximated MODERATE 2
amounts of urine
Laboratory Results
01/05/25 08:19
01/05/25 08:19
Review of Systems
-
Constitutional: Fatigue, Night Sweats and Chills
: Dysuria and Frequency
Physical Exam
-
General - well developed, well nourished, no acute distress
Chest - clear bilaterally
Abdomen - soft, non-tender, positive bowel sounds, no CVAT, no incisional pain or distention
Genitalia - normal
Rectal - hold of f for now
Skin - warm & dry with no rash
Neuro - AOx3, no motor deficits
Extremities - no clubbing, no cyanosis, no edema
Incision - clean, dry
Dressing - clean, dry, intact
Care Review
Data Reviewed
Discussed with: Hospitalist and Family
CT Scan: Image Pers Reviewed
--- NOTE | 2025-01-05 19:15 | PHA.VAN.IN ---
Assessment
- Assessment
Renal Function: Appears similar to baseline, SCR Appears Elevated from baseline
Plan
- Plan
Initial / Loading Dose: 2000 mg x 1
Maintenance Regimen: dose by level
Monitoring: random level tomorrow at 0600
Pharmacokinetics Vancomycin I
- -
Patient Age: 64
Patient Sex: Male
Vancomycin Day #: 1
Indication: Genito-Urinary Tract
Requesting Provider: Dr. Heath H
Pertinent Antimicrobial Allergies:
penicillin
Height / Weight:
Height 6 ft
Actual Weight 84.232 kg
Pertinent Past Medical History: approx 6 weeks post-nephrectomy
- Vital Signs / Lab Results
Temp Pulse Resp BP Pulse Ox
101.7 F H 72 18 119/68 98
01/05/25 17:56 01/05/25 15:00 01/05/25 15:00 01/05/25 15:00 01/05/25 15:00
Lab Results - Hematology
01/02/25 01/03/25 01/04/25
19:23 07:00 07:32
WBC 16.8 H 20.9 H 19.9 H
01/05/25
08:19
WBC 12.8 H
Lab Results - Chemistry
01/02/25 01/03/25 01/04/25
19:23 07:00 07:32
BUN 30 H 25 H 23 H
Creatinine 1.8 H 1.8 H 1.8 H
Estimated Creat Clear 46 46
Albumin 4.6
01/05/25
08:19
BUN 18
Creatinine 1.7 H
Estimated Creat Clear 48
Albumin
01/02/25
19:23
Lactic Acid 0.7
Lab Results - Urine
01/02/25
19:23
Urine Nitrite (Reflex) Negative
Leukocyte Esterase Rfl 1+ A
Urine WBC (Reflex) 30-40 A
Ur Squamous Epith Cells 3-5
Urine Bacteria (Reflex) Moderate A
Microbiology Results
01/04/25 18:21 Blood Culture - Preliminary
Blood/Venous No Growth in 24 hours- Final report to follow
01/02/25 23:06 Blood Culture - Preliminary
Blood/Venous No Growth in 48 hours- Final report to follow
01/02/25 23:06 Blood Culture - Preliminary
Blood/Venous No Growth in 48 hours- Final report to follow
01/02/25 19:23 Blood Culture - Preliminary
Blood/Venous No Growth in 48 hours- Final report to follow
[2025-01-05] MEDS: VANCOCIN 540 MG IV (20:01)
[2025-01-05] MEDS: AMBIEN 5 MG PO (21:52)
[2025-01-05 23:00] VITALS: BP 92/51
[2025-01-06] MEDS: HEPARIN SC ×4 (00:03→23:13)
[2025-01-06] MEDS: MAXIPIME 1000 MG IV ×2 (02:30→14:11)
[2025-01-06] MEDS: STERILE WATER FOR INJECTION 10 ML IV ×2 (02:30→14:11)
[2025-01-06 07:00] VITALS: BP 120/58
[2025-01-06] MEDS: PAXIL 10 MG PO (07:50)
[2025-01-06] MEDS: LIPITOR 10 MG PO (07:50)
[2025-01-06] MEDS: FLOMAX 0.8 MG PO (07:50)
[2025-01-06 07:57] VITALS: BMI 27.0
--- NOTE | 2025-01-06 09:09 | W.PN.HOSP.TC ---
Today's Communication/Plan
-
hope to dc in am if afebrile
Assessment / Plan
Assessment / Plan
Physical Exam
-
General: Well Developed, Well Nourished and Other (ill appearing)
HEENT: Normocephalic and Atraumatic
Respiratory: Clear to Auscultation; Negative Wheezes or Rhonchi
Cardiac: Regular Rhythm and S1/S2; Negative Murmur
GI: Soft, Nontender, Nondistended and Normal Bowel Sounds
Musculoskeletal: No Clubbing, No Cyanosis and No Edema
Skin: Warm
; no swelling or scrotal swelling / tenderness
Neuro: Awake
Psych: Calm
A/p:
pt is a 64 year old male
# He presented with fever, dysuria and leukocytosis
Localized infection, not sepsis
Seems c/w prostatitis, cultures negative but pt had dysuria/ burning with urination and elevated WBC, shaking chills--change IV Rocephin to cefepime, added Vancomycin --consulted ID, cont Flomax--no need for more IVF--bladder scan protocol,
Appreciate Urology, ID & urology help
RUSTAM - Pre-surgical Cr 1.0. Preop as high as 1.3, then 1.84 post operatively at the peak--1.69 at discharge--Slightly worsened since discharge with Cr 1.8... may be elevated for a few months yet.... BPH symptoms with possible retention but no
current hydro or bladder distention --
c/w Flomax, cans top IVF ( he is having frequent urination)
Appreciate nephrology help
# Acute urinary retention--cont Flomax
# Dilutional anemia
#Recent left nephrectomy as a kidney donor
DVT prophylaxis�heparin subcu
CODE STATUS�full code
Total time spent to see the patient, examine the patient, review data and lab results, discuss treatment plan with patient, nursing staff around 55 minutes
Anticipated Discharge: Within 24 hours
Subjective/Interval History
-
Date of Service: January 06, 2025
He feels better, less dysuria
No fever
Objective Data
-
Labs:
Laboratory Results
01/06/25
08:49
WBC Pending
Hgb Pending
Hct Pending
Plt Count Pending
Sodium Pending
Potassium Pending
Chloride Pending
Carbon Dioxide Pending
BUN Pending
Creatinine Pending
Glucose Pending
Calcium Pending
Vital Signs:
Vital Signs
Temp Pulse Resp BP Pulse Ox
98.0 F 76 18 120/58 98
01/06/25 07:00 01/06/25 07:00 01/06/25 07:00 01/06/25 07:00 01/06/25 07:00
I&O
01/05/25 01/06/25 01/07/25
06:59 06:59 06:59
Intake Total 480 / 480 1680 / 1680
Balance 480 / 480 1680 / 1680
[2025-01-06] MEDS: MIRALAX 17 GRAMS PO (09:46)
[2025-01-06 09:49] LABS: Blood Urea Nitrogen 19 mg/dl (9-20); Calcium 8.2 mg/dl (8.4-10.2); Carbon Dioxide 25 mmol/L (22-30); Chloride 108 mmol/L (98-107); Estimated Creatinine Clearance 48 ml/min; Glucose 136 mg/dl (70-99); Potassium 4.3 mmol/L (3.5-5.1); Sodium 137 mmol/L (135-145); eGFR 44.46
[2025-01-06 10:07] LABS: Hematocrit 31.5 % (39.0-52.0); Hemoglobin 10.7 g/dL (13.0-18.0); Mean Corp Hgb Conc. 34.0 g/dL (33.0-37.0); Mean Corpuscular Volume 88.2 fL (80.0-94.0); Platelet Count 166 10^3/uL (130-400); Red Cell Dist. Width 13.9 % (11.5-14.5)
--- NOTE | 2025-01-06 10:40 | W.PN.URO.CBU ---
Today's Communication / Plan
-
improving no changes
Assessment / Plan
-
by history pt with complex uti most likely prostatitis due to richards and steroids ct scan also possible cystitis for now agree with flomax 0.4 as bladder emptyimg and wbc and fever trending down would treat as prostatitis but if
relapses will do abdoulaye an d may need mri but d]for now sxs resolving cannot have advil secondary to creatinine so pyridium for burning which generally has little effect richards can be useful but should nt instrument infected prostate will
folow
Diagnosis
-
Date of Service: January 06, 2025
-
Patient Diagnosis:
Post Op Day:
Patient Diagnosis:s/p kidney donation 7 weeks ago ghad richards 2 days and jade d uretrectomy pos t op had steroids now 7 weeks akira severe duysuria frequncy no coloc no dp-side pain wbc was welented 16 then 20 k now declining blood cxs and urine
cxs neg but u/aq p[os ntrites pt feeling better and temp teending sdown
Post Op Day:
Subjective
-
MUCH IMPROVED LESS DYSURIA X 12 HOURS
Objective
-
Vital Signs
Temp Pulse Resp BP Pulse Ox
98.0 F 76 18 120/58 98
01/06/25 07:00 01/06/25 07:00 01/06/25 07:00 01/06/25 07:00 01/06/25 07:00
Intake and Output
01/05/25 01/06/25 01/07/25
06:59 06:59 06:59
Intake Total 480 / 480 1680 / 1680
Balance 480 / 480 1680 / 1680
Intake:
Oral fluids 480 / 480 1680 / 1680
Other:
Number of approximated MODERATE 2 5
amounts of urine
Laboratory Results
01/06/25 08:49
01/06/25 08:49
Review of Systems
-
: Dysuria
Physical Exam
-
General - well developed, well nourished, no acute distress
Chest - clear bilaterally
Abdomen - soft, non-tender, positive bowel sounds, no CVAT, no incisional pain or distention
Genitalia - normal
Rectal -HELD
Skin - warm & dry with no rash
Neuro - AOx3, no motor deficits
Extremities - no clubbing, no cyanosis, no edema
Incision - clean, dry
Dressing - clean, dry, intact
Care Review
Data Reviewed
Discussed with: Nursing and Family
--- NOTE | 2025-01-06 11:45 | W.PN.ID1 ---
Date of Service
Date of Service: January 06, 2025
Today's Communication
DC Vanco.
Continue cefepime.
Assessment / Plan
# Fever
# Leukocytosis - resolved
# Urinary sx: dysuria, urgency, frequency - suspecting prostatitis
# Recent robotic left nephrectomy for donation at [facility] 11/19/24
# RUSTAM
# BPH on flomax
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
-UA 1+LE, 30-40 wbc.
-Ucx NO GROWTH (before abx)
- CT a/p without contrast: +BPH, otherwise unremarkable
- Urine sxs persist, 20% improved
- Leukocytosis now resolved on cefepime.
- DC Vancomycin (s/p 1 dose 01/05 at 1999) -> Do not want to confuse the picture. Will like to give cefepime more time to take effect.
- Continue cefepime (d3)
If no response, consider US of prostate/scrotum or MRI (per Urology) to evaluate for abscess and also check urine for GC/CT NAAT.
- Trend temps.
Chief Complaint
-: UTI
Subjective / Review of Systems
at bedside.
Urine sxs 20% improved. More urine output.
SUN, chills, resolved.
c/o 15 pound weight gain this admission.
Vital Signs / Physical Exam
Vital Signs
Vital Signs
Temp Pulse Resp BP Pulse Ox
98.0 F 76 18 120/58 98
01/06/25 07:00 01/06/25 07:00 01/06/25 07:00 01/06/25 07:00 01/06/25 07:00
Selected Entries
01/05/25
17:56
Temp 101.7 F H
Physical Exam
Constitutional: No Acute Distress
Cardiovascular: Regular Rate and S1/S2
Pulmonary: Clear
Gastrointestinal: Soft, Non Tender and Non Distended
Genito-Urinary: Negative CVA Tenderness
Extremities: Negative Edema
Neurological: AO x 3
Objective Data
Lab Data
Lab Results
01/06/25 08:49
01/06/25 08:49
Estimated Creat Clear 48 ml/min 01/06/25 08:49
Lactic Acid 0.7 mmol/L (0.7-2.0) 01/02/25 19:23
Total Bilirubin 0.6 mg/dl (0.2-1.3) 01/02/25 19:23
AST 25 U/L (17-59) 01/02/25 19:23
ALT 19 U/L (0-50) 01/02/25 19:23
Alkaline Phosphatase 65 U/L (38-126) 01/02/25 19:23
Most recent labs reviewed.
Micro Results:
01/02/25 23:06 Blood Culture - Preliminary
Blood/Venous No Growth in 72 hours- Final report to follow
01/02/25 23:06 Blood Culture - Preliminary
Blood/Venous No Growth in 72 hours- Final report to follow
01/02/25 19:23 Blood Culture - Preliminary
Blood/Venous No Growth in 72 hours- Final report to follow
01/04/25 18:21 Blood Culture - Preliminary
Blood/Venous No Growth in 24 hours- Final report to follow
01/02/25 19:23 Urine Culture - Final
Urine NO GROWTH
CT Abd/pel Without Iv Or Oral 01/02/25:
Status post left nephrectomy. There is no evidence of a focal collection to suggest an abscess.
Normal appearance of the unenhanced right kidney. No focal abnormality of the urinary bladder.
Enlargement of the prostate gland.
Normal appearance of the appendix. No evidence for bowel obstruction or free intraperitoneal air. There is no CT evidence to suggest diverticulitis.
--- NOTE | 2025-01-06 13:42 | CM ---
CM continues to follow for discharge planning. Vanco has been stopped; pt remains on Cefepime.
Plan: Watch for home IV abx needs.
--- NOTE | 2025-01-06 14:26 | W.PN.NEPH.PH ---
Today's Communication / Plan
-
Lasix one-time dose today
Assessment/Plan
-
Assessment
RUSTAM (solitary kidney status post nephrectomy)
BPH
Prostatitis suspected
Plan
Increased Flomax dosage
Daily BMP
check PVR = negative
Follow cultures, still negative to date
Fluids discontinued
Creatinine remains stable 1.7
Was 15 pound weight gain since admission abdominal bloating no edema lower extremities or difficulty breathing
Will give one-time dose of Lasix 40 mg IV x 1
-
-
Date of Service: January 06, 2025
CC / HPI / ROS
-
Chief Complaint:
solitary kidney
History of Present Illness:
Cr stable 1.8> 1.7
Status post kidney donation
Antibiotics for possible prostatitis
BP stable
Review of Systems:
no CP/SOB
Labs
-
Labs:
WBC 9.3 10^3/uL (4.8-10.8) 01/06/25 08:49
RBC 3.57 10^6/uL (4.70-6.10) L 01/06/25 08:49
Hgb 10.7 g/dL (13.0-18.0) L 01/06/25 08:49
Hct 31.5 % (39.0-52.0) L 01/06/25 08:49
Plt Count 166 10^3/uL (130-400) D 01/06/25 08:49
Sodium 137 mmol/L (135-145) 01/06/25 08:49
Potassium 4.3 mmol/L (3.5-5.1) 01/06/25 08:49
Chloride 108 mmol/L (98-107) H 01/06/25 08:49
Carbon Dioxide 25 mmol/L (22-30) 01/06/25 08:49
BUN 19 mg/dl (9-20) 01/06/25 08:49
Creatinine 1.7 mg/dL (0.7-1.3) H 01/06/25 08:49
eGFR 44.46 01/06/25 08:49
Glucose 136 mg/dl (70-99) H 01/06/25 08:49
Calcium 8.2 mg/dl (8.4-10.2) L 01/06/25 08:49
Albumin 4.6 g/dl (3.5-5.0) 01/02/25 19:23
Physical Exam
-
Vital Signs:
Vital Signs
Temp Pulse Resp BP Pulse Ox
97.1 F 76 18 120/58 98
01/06/25 11:00 01/06/25 07:00 01/06/25 07:00 01/06/25 07:00 01/06/25 07:00
Cardiovascular:: Regular rate and rhythm
Respiratory:: Bilateral: CTA
Lung Excursion:: Normal
Abdomen:: Nontender and Soft
Bowel Sounds:: Normal
Extremity Edema:: None: Bilateral:
[2025-01-06 15:00] VITALS: BP 116/76
[2025-01-06] MEDS: LASIX 40 MG IV (15:02)
[2025-01-06] MEDS: AMBIEN 5 MG PO (20:31)
[2025-01-06 23:00] VITALS: BP 109/68
[2025-01-07] MEDS: TYLENOL 1000 MG PO (00:34)
[2025-01-07] MEDS: STERILE WATER FOR INJECTION 10 ML IV ×2 (02:23→14:03)
[2025-01-07] MEDS: MAXIPIME 1000 MG IV ×2 (02:24→14:03)
[2025-01-07 03:50] VITALS: BMI 26.1
[2025-01-07 06:00] VITALS: BMI 26.1
[2025-01-07 07:30] VITALS: BP 111/71
[2025-01-07] MEDS: PAXIL 10 MG PO (07:47)
[2025-01-07] MEDS: LIPITOR 10 MG PO (07:47)
[2025-01-07] MEDS: FLOMAX 0.8 MG PO (07:47)
[2025-01-07] MEDS: HEPARIN SC (07:48)
[2025-01-07 09:07] LABS: Blood Urea Nitrogen 20 mg/dl (9-20); Calcium 8.2 mg/dl (8.4-10.2); Carbon Dioxide 29 mmol/L (22-30); Chloride 107 mmol/L (98-107); Estimated Creatinine Clearance 51 ml/min; Glucose 95 mg/dl (70-99); Potassium 4.2 mmol/L (3.5-5.1); Sodium 139 mmol/L (135-145); eGFR 47.82
--- NOTE | 2025-01-07 09:18 | W.PN.HOSP.TC ---
Today's Communication/Plan
-
discharge
Assessment / Plan
Assessment / Plan
Physical Exam
-
General: Well Developed, Well Nourished
HEENT: Normocephalic and Atraumatic
Respiratory: Clear to Auscultation; Negative Wheezes or Rhonchi
Cardiac: Regular Rhythm and S1/S2; Negative Murmur
GI: Soft, Nontender, Nondistended and Normal Bowel Sounds
Musculoskeletal: No Clubbing, No Cyanosis and No Edema
Skin: Warm
; no swelling or scrotal swelling / tenderness
Neuro: Awake
Psych: Calm
A/p:
pt is a 64 year old male
# He presented with fever, dysuria and leukocytosis
Localized infection, not sepsis
Afebrile > 24 hours.
Seems c/w prostatitis, cultures negative but pt had dysuria/ burning with urination and elevated WBC, shaking chills--change IV Rocephin to cefepime, added Vancomycin --consulted ID, cont Flomax--no need for more IVF--bladder scan protocol,
Appreciate Urology, ID & urology help
RUSTAM - Pre-surgical Cr 1.0. Preop as high as 1.3, then 1.84 post operatively at the peak--1.69 at discharge--Slightly worsened since discharge with Cr 1.8... may be elevated for a few months yet.... BPH symptoms with possible retention but no
current hydro or bladder distention --
Creatinine level at 1.6
Volume overload, not related to cardiac issues, likely due to peripheral edema post UTI TX with IVF , given IV Lasix with good response.
c/w Flomax,
Appreciate nephrology help
# Acute urinary retention--cont Flomax
# Dilutional anemia
#Recent left nephrectomy as a kidney donor
DVT prophylaxis�heparin subcu. he refused it , he walks around
CODE STATUS�full code
Total discharge time spent to see the patient, examine the patient, review data and lab results, discuss discharge plan with patient, nursing staff around 65 minutes
Anticipated Discharge: Today
Subjective/Interval History
-
Date of Service: January 07, 2025
No chest pain
No sob
Much less dysuria( almost none)
No fevers
Objective Data
-
Labs:
Laboratory Results
01/07/25
07:46
Sodium 139
Potassium 4.2
Chloride 107
Carbon Dioxide 29
BUN 20
Creatinine 1.6 H
Glucose 95
Calcium 8.2 L
Vital Signs:
Vital Signs
Temp Pulse Resp BP Pulse Ox
97.8 F 59 16 111/71 97
01/07/25 07:30 01/07/25 07:30 01/07/25 07:30 01/07/25 07:30 01/07/25 07:30
I&O
01/06/25 01/07/25 01/08/25
06:59 06:59 06:59
Intake Total 1680 / 1680 1200 / 1200
Output Total 1200 / 1200 2300 / 2300
Balance 1680 / 1680 0 / 0 -2300 / -2300
--- NOTE | 2025-01-07 09:37 | W.PN.URO.CBU ---
Today's Communication / Plan
-
per id
Assessment / Plan
-
by history pt with complex uti most likely prostatitis due to richards and steroids WBC normalized no need for mri or trusp difficult decision as to how long and wuith what agents to treat in the absence of a positive cx Will rely on id
for input for treatment of prese=umed prostatitis
Diagnosis
-
Date of Service: January 07, 2025
-
Patient Diagnosis:
Post Op Day:
Patient Diagnosis:
Post Op Day:
Patient Diagnosis:s/p kidney donation 7 weeks ago ghad richards 2 days and jade rina uretrectomy pos t op had steroids now 7 weeks akira severe duysuria frequncy no coloc no dp-side pain wbc was welented 16 then 20 k now declining blood cxs and urine
cxs neg but u/aq p[os ntrites pt feeling better and temp teending sdown
Post Op Day:
Subjective
-
improving afebrile less dysuria
Objective
-
Vital Signs
Temp Pulse Resp BP Pulse Ox
97.8 F 59 16 111/71 97
01/07/25 07:30 01/07/25 07:30 01/07/25 07:30 01/07/25 07:30 01/07/25 07:30
Intake and Output
01/06/25 01/07/25 01/08/25
06:59 06:59 06:59
Intake Total 1680 / 1680 1200 / 1200
Output Total 1200 / 1200 2300 / 2300
Balance 1680 / 1680 0 / 0 -2300 / -2300
Intake:
Oral fluids 1680 / 1680 1200 / 1200
Output:
Urine, Voided 1200 / 1200 2300 / 2300
Other:
How many times incontinent 6
MODERATE amount urine
Number of approximated MODERATE 5
amounts of urine
Number of approximated LARGE 12
amounts of urine
Laboratory Results
01/06/25 08:49
01/07/25 07:46
Review of Systems
-
: Dysuria
Physical Exam
-
General - well developed, well nourished, no acute distress
Chest - clear bilaterally
Abdomen - soft, non-tender, positive bowel sounds, no CVAT, no incisional pain or distention
Genitalia - normal
Rectal - normal
Skin - warm & dry with no rash
Neuro - AOx3, no motor deficits
Extremities - no clubbing, no cyanosis, no edema
Incision - clean, dry
Dressing - clean, dry, intact
Care Review
Data Reviewed
Discussed with: Family
--- NOTE | 2025-01-07 12:29 | W.PN.ID1 ---
Addendum entered and electronically signed by Pam Perez MD 01/07/25 13:56:
I saw and evaluated the patient. I reviewed the resident�s note and agree with findings and plan as documented in the resident�s note.
S: Feeling better. Still with painful urination 7 of 10, more tolerable.
O: afebrile.
A/P:
# Fever - resolved
# Leukocytosis - resolved
# Urinary sx: dysuria, urgency, frequency - suspecting prostatitis
# Recent robotic left nephrectomy for donation at [facility] 11/19/24
# RUSTAM - slightly improved
# BPH on flomax
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
-UA 1+LE, 30-40 wbc.
-Ucx NO GROWTH (before abx)
- CT a/p without contrast: +BPH, otherwise unremarkable
- Urine sxs persist, 30% improved
- Can transition cefepime(d4) to cipro 500mg po bid x 14 more days.
-Discussed potential tendinitis/rupture with cipro as well as C. diff.
- Instructed patient how to take cipro.
d/w Dr. Heath
Original Note:
Date of Service
Date of Service: January 07, 2025
AFVSS. Offers no new complaints
Today's Communication
cipro 500 mg bid for 2 weeks at dc
ok for dc from ID standpoint
Assessment / Plan
# Fever; resolved
# Leukocytosis - resolved
# Urinary sx: dysuria, urgency, frequency - suspecting prostatitis
# Recent robotic left nephrectomy for donation at [facility] 11/19/24
# RUSTAM
# BPH on flomax
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
- UA 1+LE, 30-40 wbc.
- Ucx NO GROWTH (before abx)
- CT a/p without contrast: +BPH, otherwise unremarkable
- Urine sxs persist, 40% improved
- Leukocytosis now resolved on cefepime.
- DC Vancomycin (s/p 1 dose 01/05 at 1999) -> Do not want to confuse the picture. Will like to give cefepime more time to take effect.
- Continue cefepime (d4) , can switch to cipro 500mg for another 2 weeks at dc
- Urology does not recommend any additional testing at this time
Chief Complaint
-: UTI
Subjective / Review of Systems
Review of Systems: No Fever, No Chills, No Chest Pain, No Abdominal Pain, No Nausea and Dysuria
Vital Signs / Physical Exam
Vital Signs
Vital Signs
Temp Pulse Resp BP Pulse Ox
97.8 F 59 16 111/71 97
01/07/25 07:30 01/07/25 07:30 01/07/25 07:30 01/07/25 07:30 01/07/25 07:30
Physical Exam
Constitutional: No Acute Distress
Cardiovascular: Regular Rate
Pulmonary: Clear and Non Labored
Gastrointestinal: Soft and Non Tender
Skin: Warm
Neurological: Awake, Alert and Oriented
Psychological: Calm
Objective Data
Lab Data
Lab Results
01/06/25 08:49
01/07/25 07:46
Estimated Creat Clear 51 ml/min 01/07/25 07:46
Lactic Acid 0.7 mmol/L (0.7-2.0) 01/02/25 19:23
Total Bilirubin 0.6 mg/dl (0.2-1.3) 01/02/25 19:23
AST 25 U/L (17-59) 01/02/25 19:23
ALT 19 U/L (0-50) 01/02/25 19:23
Alkaline Phosphatase 65 U/L (38-126) 01/02/25 19:23
Most recent labs reviewed.
Micro Results:
01/02/25 23:06 Blood Culture - Preliminary
Blood/Venous No Growth in 4 days- Final report to follow
01/02/25 23:06 Blood Culture - Preliminary
Blood/Venous No Growth in 4 days- Final report to follow
01/02/25 19:23 Blood Culture - Preliminary
Blood/Venous No Growth in 4 days- Final report to follow
01/04/25 18:21 Blood Culture - Preliminary
Blood/Venous No Growth in 48 hours- Final report to follow
01/02/25 19:23 Urine Culture - Final
Urine NO GROWTH
CT Abd/pel Without Iv Or Oral 01/02/25:
Status post left nephrectomy. There is no evidence of a focal collection to suggest an abscess.
Normal appearance of the unenhanced right kidney. No focal abnormality of the urinary bladder.
Enlargement of the prostate gland.
Normal appearance of the appendix. No evidence for bowel obstruction or free intraperitoneal air. There is no CT evidence to suggest diverticulitis.
[2025-01-07 14:30] VITALS: BP 115/75
--- NOTE | 2025-01-07 14:47 | CM ---
Pt is cleared for discharge today. Oral antibiotics ordered for discharge.
Plan: Discharge to home today. will transport.
--- NOTE | 2025-01-07 15:05 | W.PN.NEPH.PH ---
Today's Communication / Plan
-
follow BMP
Assessment/Plan
-
Assessment
RUSTAM (solitary kidney status post nephrectomy)
BPH
Prostatitis suspected
Plan
follow BMP
abx per ID
follow fever curve
dc planning
-
-
Date of Service: January 07, 2025
CC / HPI / ROS
-
Chief Complaint:
solitary kidney
History of Present Illness:
Cr down to 1.6
diuresed well with lasix
Status post kidney donation 7w ago
Antibiotics for probable prostatitis
BP stable
Review of Systems:
no CP/SOB
Labs
-
Labs:
WBC 9.3 10^3/uL (4.8-10.8) 01/06/25 08:49
RBC 3.57 10^6/uL (4.70-6.10) L 01/06/25 08:49
Hgb 10.7 g/dL (13.0-18.0) L 01/06/25 08:49
Hct 31.5 % (39.0-52.0) L 01/06/25 08:49
Plt Count 166 10^3/uL (130-400) D 01/06/25 08:49
Sodium 139 mmol/L (135-145) 01/07/25 07:46
Potassium 4.2 mmol/L (3.5-5.1) 01/07/25 07:46
Chloride 107 mmol/L (98-107) 01/07/25 07:46
Carbon Dioxide 29 mmol/L (22-30) 01/07/25 07:46
BUN 20 mg/dl (9-20) 01/07/25 07:46
Creatinine 1.6 mg/dL (0.7-1.3) H 01/07/25 07:46
eGFR 47.82 01/07/25 07:46
Glucose 95 mg/dl (70-99) 01/07/25 07:46
Calcium 8.2 mg/dl (8.4-10.2) L 01/07/25 07:46
Albumin 4.6 g/dl (3.5-5.0) 01/02/25 19:23
Physical Exam
-
Vital Signs:
Vital Signs
Temp Pulse Resp BP Pulse Ox
97.8 F 59 16 111/71 97
01/07/25 07:30 01/07/25 07:30 01/07/25 07:30 01/07/25 07:30 01/07/25 07:30
Cardiovascular:: Regular rate and rhythm
Respiratory:: Bilateral: CTA
Lung Excursion:: Normal
Abdomen:: Nontender and Soft
Bowel Sounds:: Normal
Extremity Edema:: None: Bilateral:
--- NOTE | 2025-01-07 15:17 | W.DCSUMMARY ---
Discharge Summary
Discharge Data
Date of Admission: 01/02/25
Date of Discharge: 01/07/25
-
Pending Results: No
Hospital Course
64 years old male presented with dysuria and fever. Patient was found to have leukocytosis. Patient complained of urgency and frequency of urination. He received intravenous antibiotic and intravenous fluid. Patient was evaluated by urologist
and ID doctors. Urine and blood culture did not show any growth. His urinary symptoms felt to be consistent with acute prostatitis. Patient did not have localized erythema/swelling/tenderness. Patient started to improve. He was noticed to have
acute kidney injury. He was seen by [facility]. Patient had history of robotic left nephrectomy. His baseline creatinine reportedly around 1.6-1.7. Patient received intravenous fluid. Creatinine started to come down with baseline around 1.6
upon discharge. He had weight gain was given Lasix with good response. Patient remained hemodynamically stable. He was discharged on ciprofloxacin. Patient was counseled regarding potential side effects of quinolones and he verbalized
understanding. Patient was discharged home in a stable condition.
Discharge Plan
-
Patient Disposition: Home (Routine Discharge)
Discharge Diagnosis/Procedures: Suspected acute prostatitis, acute kidney injury
You are seen by urologist, [facility], ID doctors. You were given IV antibiotic. Blood culture and urine culture did not show any growth. Creatinine on discharge 1.6
Condition: Good
Diet: As tolerated and Regular
Activity: As tolerated
Driving Restrictions: As prior to admission
Bathing Restrictions: None
Activity Restrictions/Additional Instructions:
If taking antacid, iron, zinc, magnesium, aluminum, calcium, or sucralfate, give these products 6 hours before or 2 hours after ciprofloxacin.
Referrals:
Morgan Diaz MD [Family Provider, Family Practice] - in less than 1 week
Prescriptions:
New
ciprofloxacin HCl 500 mg Tablet
500 mg PO BID Qty: 28 0RF
acetaminophen [Tylenol Extra Strength] 500 mg Tablet
1,000 mg PO Q6HPRN PRN (Reason: mild to mod pain/SUN/fever) Qty: 10 0RF
phenazopyridine 100 mg Tablet
100 mg PO TIDPRN PRN (Reason: urinary discomfort) Qty: 20 0RF
Continued
tamsulosin 0.4 mg Capsule
0.4 mg PO DAILY
zolpidem [Ambien] 5 mg Tablet
5 mg PO HS
paroxetine HCl [Paxil] 10 mg Tablet
10 mg PO DAILY
Held
simvastatin 10 mg Tablet
10 mg PO DAILY
Hold Instructions: Resume on 01/21/25.
Discharge Orders:
Discharge Patient (As Directed); Ordered 01/07/25
Ordered By: Elmer Heath
Discharge Date and Time
Discharge Date/Time: 01/07/25 15:11
Print Language: GERMAN
== END 2025-01-07 15:11 | disposition home or self-care (01) | DRG 682 ==
LOC: 3 WEST ACU 01:16
PROVIDERS: Emergency Medicine; Internal Medicine; ADMITTING PHYSICIAN Internal Medicine; ATTENDING PHYSICIAN Internal Medicine; CONSULT PHYSICIAN Specialist; EMERGENCY PHYSICIAN Emergency Medicine; FAMILY PHYSICIAN Family Medicine; OTHER PHYSICIAN Internal Medicine Infectious Disease
DX: N17.9 Acute kidney failure, unspecified (principal); R65.11 Systemic inflammatory response syndrome (SIRS) of non-infectious origin with acute organ dysfunction; E87.1 Hypo-osmolality and hyponatremia; N41.0 Acute prostatitis; D64.9 Anemia, unspecified; N40.0 Benign prostatic hyperplasia without lower urinary tract symptoms; E78.00 Pure hypercholesterolemia, unspecified; Z90.5 Acquired absence of kidney; Z88.0 Allergy status to penicillin; Z79.899 Other long term (current) drug therapy; Z11.52 Encounter for screening for COVID-19
CPT/HCPCS: 51798; 74176; 80048; 80053; 80202; 81003; 81015; 83605; 83735; 85025; 85027; 87040; 87086; 87811; 93005; 96361; 96374; 99285